=== PATIENT | male | born 1950 ===

== ENCOUNTER 2023-11-20 06:15 | Day surgery (SDC) | payer OTHER ==
[2023-11-13 13:33] LABS: URINE APPEARANCE Clear; URINE BILIRRUBIN Negative (NEGATIVE); URINE BLOOD Negative; URINE COLOR Yellow; URINE GLUCOSE Negative (NEGATIVE); URINE KETONE Negative (NEGATIVE); URINE LEUKOCYTE Negative; URINE NITRATE Negative; URINE PROTEIN Negative (NEGATIVE); URINE UROBILINOGEN 0.2 E.U./dl
[2023-11-13 13:34] LABS: HEMOGLOBIN 12.7 g/dL (13-16.00); MEAN CELL VOLUME 87.2 fL (80.0-100.00); MEAN CORPUSCULAR HEMOGLOBIN 29.2 pg (27.00-32.0); MEAN CORPUSCULAR HGB CONC 33.5 g/dl (32.0-36.0); PLATELET COUNT 185 K/uL (150-450); RED BLOOD COUNT 4.36 M/uL (4.00-6.00); RED CELL DISTRIBUTION WIDTH 15.6 % (11.5-14.5)
[2023-11-13 13:37] LABS: URINE BACTERIA 1.2 uL (0.0-1933); URINE CAST 0.15 uL (0.0-1.40); URINE EPITHELIAL CELLS 0.4 uL (0.0-38.8); URINE WBC 0.5 uL (0.0-23.2)
[2023-11-13 13:54] LABS: INR 1.01; PARTIAL THROMBOPLASTIN TIME 25.6 SECONDS (22.0-34.0); PROTHROMBIN TIME 10.6 SECONDS (9.0-11.5)
[2023-11-13 14:01] LABS: BILIRUBIN TOTAL 0.98 mg/dL (0.3-1.2); CALCIUM 10.4 mg/dL (8.5-10.1); CREATININE SERUM 0.78 mg/dL (0.70-1.30); GFR 97.03; GLOBULINA 3.5 G/DL (2.4-3.5); POTASSIUM 4.23 mEq/L (3.5-5.1); TOTAL PROTEIN 7.5 gm/dL (6.4-8.2)
[~2023-11-20 06:15] MED LIST: AVAPRO300 MG; CARDURA8 MG; CHILDREN'S ASPI81 MG; HYDRODIURIL12.5 MG; LIPITOR20 MG; LOPRESSOR25 MG
[2023-11-20] MEDS ORDERED: DEXAMETHASONE SODIUM PHOSPHATE 4 MG/ML VIAL ONE (12:17)
[2023-11-20] MEDS ORDERED: ENALAPRILAT DIHYDRATE 1.25 MG/ML VIAL IV ONE (15:55)
== END 2023-11-20 17:00 | disposition home or self-care (01) ==
LOC: CIR.AMB 06:15
PROVIDERS: ATTEND Surgery
DX: C81.91 Hodgkin lymphoma, unspecified, lymph nodes of head, face, and neck (principal); R22.1 Localized swelling, mass and lump, neck